=== PATIENT | male | born 1985 | race Caucasian/White ===

== ENCOUNTER 2023-03-26 17:13 | Emergency (ER) | payer BC ==
[~2023-03-26] VITALS: Ht 172.7 cm; Wt 90.7 kg
[2023-03-26] MEDS ORDERED: PARO30TA74 PO (17:43)
[2023-03-26 18:00] VITALS: BP 127/85; O2SAT 96
== END 2023-03-26 18:01 | disposition home or self-care (01) ==
LOC: ER 17:16
DX: U07.1 COVID-19 (principal); F41.9 Anxiety disorder, unspecified; Z79.899 Other long term (current) drug therapy; Z60.2 Problems related to living alone
CPT/HCPCS: A4606; A4663